=== PATIENT | female | born 1950 | race Caucasian/White ===

== ENCOUNTER 2016-08-15 17:34 | Inpatient (IN) | payer OTHER ==
[~2016-08-15] VITALS: Ht 152.4 cm; Wt 74.8 kg
[~2016-08-15 17:34] MED LIST: ACETAMINOPHEN650 M7 PO; AMLODIPINE BES2.5 MG PO; Aspirin E.C. PO; CHRONULAC,CEPHUL1 ML PO; CORAL CALCIUM1 EAC4 PO; ELIQUIS5 MG PO; FAMOTIDINE PO; FISH OIL500 MG PO; HYDROCHLOROTHIA25 MG PO; HYDROCHLOROTHIAZIDE; HYDROCODON-ACE1 EAC9 PO; KEFLEX500 MG PO; LISINOPRIL; LISINOPRIL 20 MG TAB; LISINOPRIL20 MG PO; LO-DOSE ASPIRIN81 M1 PO; LORAZEPAM; MOTRIN600 MG PO; NAPROXEN; NAPROXEN500 MG PO; NORCO 5/3251 TABLET PO; NORVASC5 MG PO; OMEPRAZOLE20 M2 PO; OMEPRAZOLE20 MG PO; OMEPRAZOLE40 M1 PO; PANTOPRAZOLE SO40 MG PO; PHENERGAN25 MG PO; PRINIVIL20 MG PO; PROMETHAZINE HC25 M1 PO; STOOL SOFTENER100 MG PO; TYLENOL EXTRA500 MG PO; TYLENOL WITH C1 EACH PO; VITAMIN D1000 INTUN PO
[2016-08-15] MEDS ORDERED: HYZAAR 100-11 TABLET PO (17:48)
[2016-08-15 18:08] LABS: MCH 27.7 PG (29.0-34.0); MCHC 31.8 G/DL (30.0-36.0); MCV 87.1 FL (83-99); MEAN PLAT.VOLUME 10.5 uM^3 (9.5-12.4); PLATELET COUNT 310 K/uL (156-360); RBC DIS.WIDTH-CV 14.4 % (11.8-14.6); RBC DIS.WIDTH-SD 45.9 % (39-53); RED BLOOD COUNT 4.59 M/uL (3.80-5.20); WHITE BLOOD COUNT 15.4 K/uL (4.1-10.2)
[2016-08-15 18:17] LABS: CHLORIDE 105 mEq/L (99-109); POTASSIUM 3.6 mEq/L (3.7-5.4); SODIUM 140 mEq/L (136-147)
[2016-08-15 18:20] LABS: GLUCOSE 124 mg/dL (70-99)
[2016-08-15 18:21] LABS: ANION GAP 12 MEQ/L (2-14)
[2016-08-15 18:22] LABS: TOTAL BILIRUBIN 0.8 mg/dL (0.0-1.0)
[2016-08-15 18:23] LABS: ALKALINE PHOSPHATASE 72 IU/L (3-129); GFR ESTIMATE (CALCULATED) > 59 mL/min/
[2016-08-15 18:24] LABS: UREA NITROGEN (BUN) 19 mg/dL (9-23)
[2016-08-15] MEDS ORDERED: TYLENOL EXTRA500 MG PO (21:52)
[2016-08-15] MEDS ORDERED: LO-DOSE ASPIRIN81 M1 PO (21:52)
[2016-08-16 02:30] LABS: ADD MIUA? YES; BILIRUBIN NEGATIVE; BLOOD MODERATE; COLOR YELLOW ((YELLOW)); GLUCOSE (STRIP) NEGATIVE; KETONES NEGATIVE; LEUKOCYTES SMALL; NITRITE NEGATIVE; PROTEIN (STRIP) NEGATIVE; SPECIFIC GRAVITY 1.041 (1.000-1.030); UROBILINOGEN 0.2 MG/DL (0.2-1.0)
[2016-08-16 02:32] LABS: BACTERIA RARE /HPF; EPITHELIAL CELLS RARE /HPF; MUCUS TRACE /LPF; RED BLOOD CELLS 0-5 /HPF (0-5); UCUL ADDED? NO; WHITE BLOOD CELLS 0-5 /HPF (0-5)
[2016-08-16 04:44] LABS: HEMATOCRIT 38.2 % (36.0-46.0); MCH 27.7 PG (29.0-34.0); MCHC 31.4 G/DL (30.0-36.0); MCV 88.2 FL (83-99); MEAN PLAT.VOLUME 10.9 uM^3 (9.5-12.4); PLATELET COUNT 268 K/uL (156-360); RBC DIS.WIDTH-CV 14.6 % (11.8-14.6); RBC DIS.WIDTH-SD 47.1 % (39-53); RED BLOOD COUNT 4.33 M/uL (3.80-5.20); WHITE BLOOD COUNT 16.1 K/uL (4.1-10.2)
[2016-08-16 05:02] LABS: CHLORIDE 104 mEq/L (99-109); SODIUM 138 mEq/L (136-147)
[2016-08-16 05:05] LABS: ANION GAP 9 MEQ/L (2-14); GLUCOSE 112 mg/dL (70-99)
[2016-08-16 05:06] LABS: TOTAL BILIRUBIN 0.9 mg/dL (0.0-1.0)
[2016-08-16 05:08] LABS: ALKALINE PHOSPHATASE 65 IU/L (3-129); GFR ESTIMATE (CALCULATED) > 59 mL/min/
[2016-08-16 05:09] LABS: UREA NITROGEN (BUN) 14 mg/dL (9-23)
[2016-08-16 15:00] LABS: HEMATOCRIT 35.7 % (36.0-46.0); MCH 27.6 PG (29.0-34.0); MCHC 30.8 G/DL (30.0-36.0); MCV 89.5 FL (83-99); MEAN PLAT.VOLUME 10.4 uM^3 (9.5-12.4); PLATELET COUNT 266 K/uL (156-360); RBC DIS.WIDTH-CV 14.6 % (11.8-14.6); RBC DIS.WIDTH-SD 48.1 % (39-53); RED BLOOD COUNT 3.99 M/uL (3.80-5.20); WHITE BLOOD COUNT 14.8 K/uL (4.1-10.2)
[2016-08-16 15:14] LABS: CHLORIDE 106 mEq/L (99-109); POTASSIUM 3.5 mEq/L (3.7-5.4); SODIUM 140 mEq/L (136-147)
[2016-08-16 15:15] LABS: GLUCOSE 86 mg/dL (70-99)
[2016-08-16 15:17] LABS: ANION GAP 7 MEQ/L (2-14)
[2016-08-16 15:19] LABS: GFR ESTIMATE (CALCULATED) > 59 mL/min/
[2016-08-16 15:20] LABS: UREA NITROGEN (BUN) 11 mg/dL (9-23)
[2016-08-16 18:15] VITALS: BP 101/65
[2016-08-16 23:43] VITALS: BP 140/66
[2016-08-17 03:48] VITALS: BP 124/69
[2016-08-17 07:09] LABS: EOSINOPHIL (%) 1.1 % (0-5); EOSINOPHIL COUNT 0.2 K/uL (0-0.3); HEMATOCRIT 33.7 % (36.0-46.0); IMMATURE GRANULOCYTE (%) 0.6 % (0.0-0.7); IMMATURE GRANULOCYTE COUNT 0.1 K/uL; INSTRUMENT ABS NEUTROPHIL CT 11.2 K/uL; LYMPHOCYTE COUNT 1.5 K/uL (1.0-2.8); MCH 27.5 PG (29.0-34.0); MCHC 30.6 G/DL (30.0-36.0); MCV 89.9 FL (83-99); MEAN PLAT.VOLUME 10.7 uM^3 (9.5-12.4); MONOCYTE (%) 9.4 % (3-12); MONOCYTE COUNT 1.4 K/uL (0-0.8); NEUTROPHIL (%) 77.8 % (45-76); NEUTROPHIL COUNT 11.2 K/uL (1.8-6.4); PLATELET COUNT 246 K/uL (156-360); RBC DIS.WIDTH-CV 14.8 % (11.8-14.6); RBC DIS.WIDTH-SD 49.1 % (39-53); RED BLOOD COUNT 3.75 M/uL (3.80-5.20); WHITE BLOOD COUNT 14.3 K/uL (4.1-10.2)
[2016-08-17 07:30] LABS: ANION GAP 5 MEQ/L (2-14); CHLORIDE 104 MEQ/L (99-109); GFR ESTIMATE (CALCULATED) > 59 mL/min/; POTASSIUM 3.5 MEQ/L (3.7-5.4); SAMPLE HEMOLYSIS CHECK 0; SAMPLE ICTERIC CHECK 0; SAMPLE LIPEMIA CHECK 0; SODIUM 139 MEQ/L (136-147); UREA NITROGEN (BUN) 7 mg/dL (9-23)
[2016-08-17 07:40] LABS: GLUCOSE 108 mg/dL (70-99)
[2016-08-17 07:56] VITALS: BP 111/62
[2016-08-17 15:24] VITALS: BP 130/68
[2016-08-17 19:14] VITALS: BP 141/71
[2016-08-17 22:56] LABS: INTERNAL CONTROL VALID? YES
[2016-08-17 23:20] LABS: C DIFF TOXIN NEGATIVE (NEGATIVE)
[2016-08-17 23:21] LABS: PROBE CHECK PASS; SPECIMEN PROCESSING CONTROL PASS
[2016-08-18] VITALS (7 sets, daily range): BP systolic 100–145; BP diastolic 60–89
[2016-08-18 10:40] LABS: BASOPHIL COUNT 0.1 K/uL (0-0.1); EOSINOPHIL (%) 1.4 % (0-5); EOSINOPHIL COUNT 0.1 K/uL (0-0.3); HEMATOCRIT 34.3 % (36.0-46.0); IMMATURE GRANULOCYTE (%) 0.4 % (0.0-0.7); LYMPHOCYTE COUNT 1.6 K/uL (1.0-2.8); MCH 27.4 PG (29.0-34.0); MCHC 30.6 G/DL (30.0-36.0); MCV 89.6 FL (83-99); MEAN PLAT.VOLUME 10.7 uM^3 (9.5-12.4); MONOCYTE (%) 13.1 % (3-12); MONOCYTE COUNT 1.2 K/uL (0-0.8); NEUTROPHIL (%) 66.5 % (45-76); PLATELET COUNT 249 K/uL (156-360); RBC DIS.WIDTH-CV 14.7 % (11.8-14.6); RBC DIS.WIDTH-SD 47.8 % (39-53); RED BLOOD COUNT 3.83 M/uL (3.80-5.20); WHITE BLOOD COUNT 9.1 K/uL (4.1-10.2)
[2016-08-18 10:46] LABS: ANION GAP 10 MEQ/L (2-14); CHLORIDE 105 MEQ/L (99-109); GFR ESTIMATE (CALCULATED) > 59 mL/min/; GLUCOSE 108 mg/dL (70-99); POTASSIUM 3.6 MEQ/L (3.7-5.4); SAMPLE HEMOLYSIS CHECK 0; SAMPLE ICTERIC CHECK 0; SAMPLE LIPEMIA CHECK 0; SODIUM 144 MEQ/L (136-147); UREA NITROGEN (BUN) 6 mg/dL (9-23)
[2016-08-19 03:58] VITALS: BP 168/82
[2016-08-19 07:05] VITALS: BP 138/84
[2016-08-19 07:12] LABS: BASOPHIL COUNT 0.1 K/uL (0-0.1); EOSINOPHIL (%) 3.2 % (0-5); EOSINOPHIL COUNT 0.2 K/uL (0-0.3); HEMATOCRIT 34.1 % (36.0-46.0); IMMATURE GRANULOCYTE (%) 0.5 % (0.0-0.7); INSTRUMENT ABS NEUTROPHIL CT 3.7 K/uL; LYMPHOCYTE COUNT 1.5 K/uL (1.0-2.8); MCH 27.4 PG (29.0-34.0); MCHC 31.1 G/DL (30.0-36.0); MCV 88.1 FL (83-99); MEAN PLAT.VOLUME 10.4 uM^3 (9.5-12.4); MONOCYTE (%) 15.9 % (3-12); NEUTROPHIL (%) 57.1 % (45-76); NEUTROPHIL COUNT 3.7 K/uL (1.8-6.4); PLATELET COUNT 275 K/uL (156-360); RBC DIS.WIDTH-CV 14.6 % (11.8-14.6); RBC DIS.WIDTH-SD 46.8 % (39-53); RED BLOOD COUNT 3.87 M/uL (3.80-5.20); WHITE BLOOD COUNT 6.5 K/uL (4.1-10.2)
[2016-08-19 07:40] LABS: ANION GAP 8 MEQ/L (2-14); CHLORIDE 107 MEQ/L (99-109); GFR ESTIMATE (CALCULATED) > 59 mL/min/; GLUCOSE 109 mg/dL (70-99); POTASSIUM 3.4 MEQ/L (3.7-5.4); SAMPLE HEMOLYSIS CHECK 0; SAMPLE ICTERIC CHECK 0; SAMPLE LIPEMIA CHECK 0; SODIUM 146 MEQ/L (136-147); UREA NITROGEN (BUN) 4 mg/dL (9-23)
[2016-08-19 16:18] VITALS: BP 140/56
[2016-08-19 23:46] VITALS: BP 147/81
[2016-08-20 07:45] VITALS: BP 119/85
[2016-08-20 07:48] LABS: ANION GAP 10 MEQ/L (2-14); CHLORIDE 109 MEQ/L (99-109); GFR ESTIMATE (CALCULATED) > 59 mL/min/; GLUCOSE 102 mg/dL (70-99); POTASSIUM 3.6 MEQ/L (3.7-5.4); SAMPLE HEMOLYSIS CHECK 0; SAMPLE ICTERIC CHECK 0; SAMPLE LIPEMIA CHECK 0; SODIUM 144 MEQ/L (136-147); UREA NITROGEN (BUN) 5 mg/dL (9-23)
[2016-08-20 07:55] LABS: HEMATOCRIT 33.6 % (36.0-46.0); MCH 27.6 PG (29.0-34.0); MCHC 31.5 G/DL (30.0-36.0); MCV 87.5 FL (83-99); MEAN PLAT.VOLUME 10.7 uM^3 (9.5-12.4); PLATELET COUNT 285 K/uL (156-360); RBC DIS.WIDTH-CV 14.9 % (11.8-14.6); RBC DIS.WIDTH-SD 47.6 % (39-53); RED BLOOD COUNT 3.84 M/uL (3.80-5.20)
[2016-08-20] MEDS ORDERED: METRONIDAZOLE500 MG PO (12:03)
[2016-08-20] MEDS ORDERED: HYDROCORTISONE30 G2 PR (12:03)
[2016-08-20] MEDS ORDERED: CIPROFLOXACIN500 M1 PO (12:03)
== END 2016-08-20 13:58 | disposition home or self-care (01) | DRG 394 ==
LOC: EME 17:34 → EDOF 08-16 00:43 → 2EAST 08-16 00:43
PROVIDERS: Emergency Medicine; Hospitalist; Internal Medicine; Internal Medicine Gastroenterology; Nurse Practitioner Family
DX: K55.9 Vascular disorder of intestine, unspecified (principal); K63.3 Ulcer of intestine; K57.32 Diverticulitis of large intestine without perforation or abscess without bleeding; K59.00 Constipation, unspecified; E86.0 Dehydration; I10 Essential (primary) hypertension; K21.9 Gastro-esophageal reflux disease without esophagitis; E87.6 Hypokalemia; K76.0 Fatty (change of) liver, not elsewhere classified; K64.8 Other hemorrhoids; K76.9 Liver disease, unspecified; Z86.711 Personal history of pulmonary embolism; Z86.718 Personal history of other venous thrombosis and embolism
CPT/HCPCS: 71275; 74177; 80048; 80048 91; 80053; 80069; 81003; 83630; 85025; 85027; 85379; 87493; 88305; 93005; 99281; 99285; J0744; J1644; J1885; J2270; J2405; J3480; J7030; S0030

== ENCOUNTER 2016-09-17 12:28 | Emergency (ER) | payer OTHER ==
[~2016-09-17] VITALS: Ht 147.3 cm; Wt 73.1 kg
[~2016-09-17 12:28] MED LIST changes: +CIPROFLOXACIN500 M1 PO; +HYDROCORTISONE30 G2 PR; +HYZAAR 100-11 TABLET PO; +METRONIDAZOLE500 MG PO
[2016-09-17] MEDS ORDERED: TOBREX3.5 GM RIGHT EYE (14:23)
[2016-09-17 14:33] VITALS: BP 148/88
== END 2016-09-17 14:34 | disposition home or self-care (01) ==
LOC: EXP 12:28 → EME 12:28 → EXP 14:34
DX: S05.01XA Injury of conjunctiva and corneal abrasion without foreign body, right eye, initial encounter (principal); I10 Essential (primary) hypertension; K21.9 Gastro-esophageal reflux disease without esophagitis
CPT/HCPCS: 99281; 99283

== ENCOUNTER 2017-07-03 15:00 | Inpatient (IN) | payer OTHER ==
[~2017-07-03] VITALS: Ht 149.9 cm; Wt 79.6 kg
[~2017-07-03 15:00] MED LIST changes: +TOBREX3.5 GM RIGHT EYE
[2017-07-03 16:47] LABS: HEMATOCRIT 39.2 % (36.0-46.0); HEMOGLOBIN 12.9 G/DL (11.9-15.5); MCH 27.8 PG (29.0-34.0); MCHC 32.9 G/DL (30.0-36.0); MCV 84.5 FL (83-99); PLATELET COUNT 241 K/uL (156-360); RBC DIS.WIDTH-CV 14.5 % (11.8-14.6); RBC DIS.WIDTH-SD 44.8 % (39-53); RED BLOOD COUNT 4.64 M/uL (3.80-5.20); WHITE BLOOD COUNT 7.6 K/uL (4.1-10.2)
[2017-07-03 16:55] LABS: CHLORIDE 108 mEq/L (99-109); POTASSIUM 3.1 mEq/L (3.7-5.4); SODIUM 142 mEq/L (136-147)
[2017-07-03 16:57] LABS: GLUCOSE 104 mg/dL (70-99)
[2017-07-03 16:58] LABS: TOTAL PROTEIN 6.9 g/dL (6.4-8.3)
[2017-07-03 16:59] LABS: TOTAL BILIRUBIN 0.7 mg/dL (0.0-1.0)
[2017-07-03 17:01] LABS: ALKALINE PHOSPHATASE 72 IU/L (3-129); CREATININE 0.8 mg/dL (0.6-1.3); GFR ESTIMATE (CALCULATED) > 59 mL/min/
[2017-07-03 17:02] LABS: UREA NITROGEN (BUN) 16 mg/dL (9-23)
[2017-07-03 17:03] LABS: AST (GOT) 31 IU/L (2-34)
[2017-07-03 17:04] LABS: ALT (GPT) 30 IU/L (3-49); LIPASE 45 U/L (1.0-51.0)
[2017-07-03 17:52] LABS: APPEARANCE SL.HAZY ((CLEAR)); BILIRUBIN NEGATIVE; BLOOD SMALL; COLOR YELLOW ((YELLOW)); GLUCOSE (STRIP) NEGATIVE; KETONES NEGATIVE; LEUKOCYTES NEGATIVE; NITRITE NEGATIVE; PROTEIN (STRIP) NEGATIVE; SPECIFIC GRAVITY 1.012 (1.000-1.030); UROBILINOGEN 0.2 MG/DL (0.2-1.0)
[2017-07-03 17:57] LABS: BACTERIA RARE /HPF; EPITHELIAL CELLS 1+ /HPF; MUCUS TRACE /LPF; RED BLOOD CELLS 0-5 /HPF (0-5); WHITE BLOOD CELLS 0-5 /HPF (0-5)
[2017-07-03 18:52] LABS: TROP-I INTERPRETATION NEGATIVE; TROPONIN-I < 0.01 ng/mL (0.0-0.30)
[2017-07-03] MEDS ORDERED: LOSARTAN-HCTZ1 EAC2 PO (19:27)
[2017-07-03] MEDS ORDERED: ALEVE220 MG PO (19:30)
[2017-07-04 01:33] LABS: TROP-I INTERPRETATION NEGATIVE; TROPONIN-I 0.02 ng/mL (0.0-0.30)
[2017-07-04 06:22] LABS: HEMATOCRIT 35.7 % (36.0-46.0); HEMOGLOBIN 11.4 G/DL (11.9-15.5); MCH 27.9 PG (29.0-34.0); MCHC 31.9 G/DL (30.0-36.0); MCV 87.3 FL (83-99); PLATELET COUNT 214 K/uL (156-360); RBC DIS.WIDTH-CV 15.3 % (11.8-14.6); RBC DIS.WIDTH-SD 48.6 % (39-53); RED BLOOD COUNT 4.09 M/uL (3.80-5.20); WHITE BLOOD COUNT 5.7 K/uL (4.1-10.2)
[2017-07-04 06:41] LABS: CHLORIDE 110 mEq/L (99-109); SODIUM 142 mEq/L (136-147)
[2017-07-04 06:42] LABS: POTASSIUM 3.9 mEq/L (3.7-5.4)
[2017-07-04 06:43] LABS: GLUCOSE 101 mg/dL (70-99)
[2017-07-04 06:47] LABS: CREATININE 0.7 mg/dL (0.6-1.3); GFR ESTIMATE (CALCULATED) > 59 mL/min/; UREA NITROGEN (BUN) 13 mg/dL (9-23)
[2017-07-04 11:23] LABS: TROP-I INTERPRETATION NEGATIVE; TROPONIN-I < 0.01 ng/mL (0.0-0.30)
[2017-07-04 12:30] VITALS: BP 131/74
[2017-07-04 12:37] LABS: THYROTROPIN (TSH) 1.2 MIU/L (0.4-5.5)
[2017-07-04 16:21] VITALS: BP 137/81
[2017-07-04 20:00] VITALS: BP 128/64
[2017-07-05 00:18] VITALS: BP 128/60
[2017-07-05 04:48] VITALS: BP 125/80
[2017-07-05 09:58] VITALS: BP 115/57
[2017-07-05 11:57] VITALS: BP 131/73
[2017-07-05 16:08] VITALS: BP 137/73
[2017-07-05 19:37] VITALS: BP 128/62
[2017-07-06] VITALS (7 sets, daily range): BP systolic 136–175; BP diastolic 71–91
[2017-07-06 08:50] LABS: HEMATOCRIT 36.7 % (36.0-46.0); HEMOGLOBIN 10.9 G/DL (11.9-15.5); MCH 26.6 PG (29.0-34.0); MCHC 29.7 G/DL (30.0-36.0); MCV 89.5 FL (83-99); PLATELET COUNT 272 K/uL (156-360); RBC DIS.WIDTH-CV 15.5 % (11.8-14.6); RBC DIS.WIDTH-SD 50.8 % (39-53); WHITE BLOOD COUNT 10.9 K/uL (4.1-10.2)
[2017-07-06 09:18] LABS: CHLORIDE 108 MEQ/L (99-109); CREATININE 0.6 MG/DL (0.6-1.3); GFR ESTIMATE (CALCULATED) > 59 mL/min/; GLUCOSE 135 mg/dL (70-99); POTASSIUM 4.1 MEQ/L (3.7-5.4); SODIUM 144 MEQ/L (136-147)
[2017-07-06 09:21] LABS: UREA NITROGEN (BUN) 24 mg/dL (9-23)
[2017-07-07 00:38] VITALS: BP 107/63
[2017-07-07 04:15] VITALS: BP 108/71
[2017-07-07] MEDS ORDERED: MUCINEX600 MG PO (11:35)
[2017-07-07] MEDS ORDERED: CEFDINIR300 MG PO (11:36)
[2017-07-07] MEDS ORDERED: PREDNISONE10 MG PO (11:39)
[2017-07-07 11:52] VITALS: BP 151/89
== END 2017-07-07 19:06 | disposition home health service (06) | DRG 192 ==
LOC: EME 15:00 → EDOF 21:51 → ENRESERV 21:52 → 5WEST 07-04 11:54
PROVIDERS: Hospitalist; Nurse Practitioner Adult Health; Nurse Practitioner Family
DX: J44.1 Chronic obstructive pulmonary disease with (acute) exacerbation (principal); I27.20 Pulmonary hypertension, unspecified; J44.0 Chronic obstructive pulmonary disease with (acute) lower respiratory infection; J20.9 Acute bronchitis, unspecified; E87.6 Hypokalemia; I10 Essential (primary) hypertension; K21.0 Gastro-esophageal reflux disease with esophagitis; Z79.82 Long term (current) use of aspirin; Z86.711 Personal history of pulmonary embolism; Z87.442 Personal history of urinary calculi
CPT/HCPCS: 71046; 71275; 80048; 80053; 81003; 83690; 84443; 84484; 85027; 87040; 87502; 93005; 93306; 94640; 94640 76; 94799; 99202; 99281; 99285; G0378; J0696; J1200; J1644; J1885; J2405; J2765; J2920; J2930; J7030; J7512

== ENCOUNTER 2017-07-12 15:13 | Inpatient (IN) | payer OTHER ==
[~2017-07-12] VITALS: Ht 147.3 cm; Wt 78.6 kg
[~2017-07-12 15:13] MED LIST changes: +ALEVE220 MG PO; +CEFDINIR300 MG PO; +LOSARTAN-HCTZ1 EAC2 PO; +MUCINEX600 MG PO; +PREDNISONE10 MG PO
[2017-07-12 16:07] LABS: HEMATOCRIT 43.3 % (36.0-46.0); MCH 27.7 PG (29.0-34.0); MCHC 32.1 G/DL (30.0-36.0); MCV 86.3 FL (83-99); NRBC (%) 0.1 /100 WBC (0-0); PLATELET COUNT 210 K/uL (156-360); RBC DIS.WIDTH-CV 14.9 % (11.8-14.6); RBC DIS.WIDTH-SD 46.9 % (39-53); WHITE BLOOD COUNT 13.4 K/uL (4.1-10.2)
[2017-07-12 16:08] LABS: HEMOGLOBIN 13.9 G/DL (11.9-15.5); RED BLOOD COUNT 5.02 M/uL (3.80-5.20)
[2017-07-12 16:33] LABS: TROP-I INTERPRETATION NEGATIVE; TROPONIN-I 0.02 ng/mL (0.0-0.30)
[2017-07-12 16:45] LABS: CK-MB 2.8 ng/mL (0.0-4.9)
[2017-07-12 17:31] LABS: ALBUMIN 3.4 G/DL (3.2-4.8); ALKALINE PHOSPHATASE 53 IU/L (3-129); ALT (GPT) 37 IU/L (3-49); AST (GOT) 20 IU/L (2-34); CHLORIDE 105 MEQ/L (99-109); CKMB RELATIVE INDEX 3.8 (0.0-3.9); CREATINE KINASE 73 IU/L (1-294); GFR ESTIMATE (CALCULATED) 44 mL/min/; GLUCOSE 116 mg/dL (70-99); POTASSIUM 3.7 MEQ/L (3.7-5.4); SODIUM 144 MEQ/L (136-147); TOTAL BILIRUBIN 0.8 MG/DL (0.0-1.0); TOTAL CK 73 IU/L (1-294); TOTAL PROTEIN 5.7 G/DL (6.4-8.3); UREA NITROGEN (BUN) 25 mg/dL (9-23)
[2017-07-12 17:32] LABS: CREATININE 1.3 MG/DL (0.6-1.3)
[2017-07-12 17:41] LABS: APPEARANCE CLEAR ((CLEAR)); BILIRUBIN NEGATIVE; BLOOD SMALL; COLOR YELLOW ((YELLOW)); GLUCOSE (STRIP) NEGATIVE; KETONES NEGATIVE; LEUKOCYTES NEGATIVE; NITRITE NEGATIVE; PROTEIN (STRIP) NEGATIVE; SPECIFIC GRAVITY 1.006 (1.000-1.030); UROBILINOGEN 0.2 MG/DL (0.2-1.0)
[2017-07-12 17:59] LABS: BACTERIA RARE /HPF; EPITHELIAL CELLS RARE /HPF; MUCUS 1+ /LPF; RED BLOOD CELLS 0-5 /HPF (0-5); UCUL ADDED? YES
[2017-07-12] MEDS ORDERED: PREDNISONE10 MG PO (19:17)
[2017-07-12 22:00] VITALS: BP 87/56
[2017-07-13 03:45] VITALS: BP 113/72
[2017-07-13 05:39] LABS: HEMATOCRIT 41.9 % (36.0-46.0); MCH 26.9 PG (29.0-34.0); MCV 86.7 FL (83-99); RBC DIS.WIDTH-CV 15.4 % (11.8-14.6); RED BLOOD COUNT 4.83 M/uL (3.80-5.20)
[2017-07-13 05:40] LABS: PLATELET COUNT 301 K/uL (156-360)
[2017-07-13 06:12] LABS: CHLORIDE 111 MEQ/L (99-109); CREATININE 0.9 MG/DL (0.6-1.3); GFR ESTIMATE (CALCULATED) > 59 mL/min/; GLUCOSE 132 mg/dL (70-99); POTASSIUM 3.9 MEQ/L (3.7-5.4); SODIUM 145 MEQ/L (136-147); UREA NITROGEN (BUN) 21 mg/dL (9-23)
[2017-07-13 08:23] VITALS: BP 107/69
[2017-07-13 11:01] VITALS: BP 110/55
[2017-07-13 14:54] VITALS: BP 128/77
[2017-07-13 20:45] VITALS: BP 124/65
[2017-07-13 23:35] LABS: C DIFF TOXIN NEGATIVE (NEGATIVE)
[2017-07-14 03:10] VITALS: BP 120/71
[2017-07-14 07:05] VITALS: BP 139/81
[2017-07-14 11:42] VITALS: BP 116/67
[2017-07-14 14:54] VITALS: BP 136/80
[2017-07-14 20:26] VITALS: BP 139/82
[2017-07-14 23:00] VITALS: BP 128/69
[2017-07-15 04:00] VITALS: BP 140/76
[2017-07-15 06:50] VITALS: BP 130/90
[2017-07-15 09:04] LABS: HEMATOCRIT 39.4 % (36.0-46.0); HEMOGLOBIN 12.1 G/DL (11.9-15.5); MCHC 30.7 G/DL (30.0-36.0); MCV 87.9 FL (83-99); PLATELET COUNT 306 K/uL (156-360); RBC DIS.WIDTH-CV 16.1 % (11.8-14.6); RBC DIS.WIDTH-SD 51.5 % (39-53); RED BLOOD COUNT 4.48 M/uL (3.80-5.20); WHITE BLOOD COUNT 18.5 K/uL (4.1-10.2)
[2017-07-15 09:52] LABS: CHLORIDE 110 MEQ/L (99-109); CREATININE 0.6 MG/DL (0.6-1.3); GFR ESTIMATE (CALCULATED) > 59 mL/min/; GLUCOSE 167 mg/dL (70-99); POTASSIUM 3.7 MEQ/L (3.7-5.4); SODIUM 146 MEQ/L (136-147); UREA NITROGEN (BUN) 20 mg/dL (9-23)
[2017-07-15 11:07] VITALS: BP 130/86
[2017-07-15 15:16] VITALS: BP 128/84
[2017-07-16 00:13] VITALS: BP 136/63
[2017-07-16 07:07] LABS: BASOPHIL (%) 0.2 % (0-1); EOSINOPHIL (%) 0.3 % (0-5); HEMATOCRIT 38.8 % (36.0-46.0); HEMOGLOBIN 12.3 G/DL (11.9-15.5); IMMATURE GRANULOCYTE (%) 2.1 % (0.0-0.7); LYMPHOCYTE COUNT 2.5 K/uL (1.0-2.8); MCH 27.8 PG (29.0-34.0); MCHC 31.7 G/DL (30.0-36.0); MCV 87.8 FL (83-99); MONOCYTE (%) 14.2 % (3-12); NEUTROPHIL (%) 65.2 % (45-76); PLATELET COUNT 231 K/uL (156-360); RBC DIS.WIDTH-CV 16.4 % (11.8-14.6); RBC DIS.WIDTH-SD 52.7 % (39-53); RED BLOOD COUNT 4.42 M/uL (3.80-5.20); WHITE BLOOD COUNT 13.8 K/uL (4.1-10.2)
[2017-07-16 07:15] VITALS: BP 146/84
[2017-07-16] MEDS ORDERED: OSELTAMIVIR PHO30 MG PO (07:19)
[2017-07-16] MEDS ORDERED: LOSARTAN-HCTZ1 EAC2 PO (07:20)
[2017-07-16] MEDS ORDERED: PANTOPRAZOLE SO40 MG PO (07:27)
[2017-07-16] MEDS ORDERED: PREDNISONE20 MG PO (07:27)
[2017-07-16] MEDS ORDERED: ADVAIR HFA120 INHALA IH (07:27)
[2017-07-16] MEDS ORDERED: SPIRIVA RESPIMAT4 GM IH (07:27)
== END 2017-07-16 08:56 | disposition home or self-care (01) | DRG 872 ==
LOC: EME 15:13 → EDOF 19:43 → 4EAST 19:43 → ENRESERV 19:51 → 4EAST 21:54 → ENRESERV 07-14 12:34 → 5EAST 07-14 14:16 → ENPENDDIS 07-16 → 5EAST 07-16 08:56
PROVIDERS: Emergency Medicine; Family Medicine; Hospitalist
DX: A41.89 Other specified sepsis (principal); J44.1 Chronic obstructive pulmonary disease with (acute) exacerbation; J10.1 Influenza due to other identified influenza virus with other respiratory manifestations; J44.0 Chronic obstructive pulmonary disease with (acute) lower respiratory infection; J20.9 Acute bronchitis, unspecified; K21.9 Gastro-esophageal reflux disease without esophagitis; I10 Essential (primary) hypertension; E86.0 Dehydration; I95.9 Hypotension, unspecified; M19.049 Primary osteoarthritis, unspecified hand; Z86.711 Personal history of pulmonary embolism
CPT/HCPCS: 71045; 71275; 74176; 80048; 80053; 81003; 82550; 82553; 83605; 84484; 85025; 85027; 87040; 87077; 87086; 87493; 87502; 87801; 93005; 94640; 94640 76; 94799; 99202; 99281; 99285; J1650; J2405; J2543; J2930; J3370; J7030; J7050; J7512

== ENCOUNTER → 2017-08-07 | Outpatient (CLI) | payer OTHER ==
[~2017-08-07] MED LIST changes: +ADVAIR HFA120 INHALA IH; +OSELTAMIVIR PHO30 MG PO; +PREDNISONE20 MG PO; +SPIRIVA RESPIMAT4 GM IH
== END | disposition home or self-care (01) ==
LOC: RES 12:46
DX: R06.02 Shortness of breath (principal)
CPT/HCPCS: 94070; 94726; 94729

== ENCOUNTER 2017-12-18 16:26 | Emergency (ER) | payer OTHER ==
[~2017-12-18] VITALS: Ht 147.3 cm; Wt 74.8 kg
[2017-12-18 17:32] LABS: HEMATOCRIT 37.1 % (36.0-46.0); HEMOGLOBIN 12.2 G/DL (11.9-15.5); MCH 28.7 PG (29.0-34.0); MCHC 32.9 G/DL (30.0-36.0); MCV 87.3 FL (83-99); PLATELET COUNT 343 K/uL (156-360); RBC DIS.WIDTH-CV 14.2 % (11.8-14.6); RBC DIS.WIDTH-SD 45.1 % (39-53); RED BLOOD COUNT 4.25 M/uL (3.80-5.20); WHITE BLOOD COUNT 18.9 K/uL (4.1-10.2)
[2017-12-18 17:40] LABS: ALBUMIN 4.1 g/dL (3.2-4.8); CHLORIDE 107 mEq/L (99-109); POTASSIUM 3.6 mEq/L (3.7-5.4); SODIUM 143 mEq/L (136-147)
[2017-12-18 17:42] LABS: GLUCOSE 155 mg/dL (70-99); TOTAL PROTEIN 7.2 g/dL (6.4-8.3)
[2017-12-18 17:44] LABS: TOTAL BILIRUBIN 0.4 mg/dL (0.0-1.0)
[2017-12-18 17:46] LABS: ALKALINE PHOSPHATASE 74 IU/L (3-129); GFR ESTIMATE (CALCULATED) 59 mL/min/
[2017-12-18 17:47] LABS: UREA NITROGEN (BUN) 18 mg/dL (9-23)
[2017-12-18 17:48] LABS: AST (GOT) 35 IU/L (2-34)
[2017-12-18 17:49] LABS: ALT (GPT) 48 IU/L (3-49)
[2017-12-18 17:53] LABS: TROP-I INTERPRETATION NEGATIVE; TROPONIN-I < 0.01 ng/mL (0.0-0.30)
[2017-12-18 18:16] LABS: LIPASE 69 U/L (1.0-51.0)
[2017-12-18 20:59] LABS: APPEARANCE SL.HAZY ((CLEAR)); BILIRUBIN NEGATIVE; BLOOD NEGATIVE; COLOR YELLOW ((YELLOW)); GLUCOSE (STRIP) NEGATIVE; KETONES NEGATIVE; LEUKOCYTES NEGATIVE; NITRITE NEGATIVE; PROTEIN (STRIP) NEGATIVE; SPECIFIC GRAVITY 1.021 (1.000-1.030); UROBILINOGEN 0.2 MG/DL (0.2-1.0)
[2017-12-18 21:24] LABS: BACTERIA RARE /HPF; EPITHELIAL CELLS 3+ /HPF; HYALINE CASTS 0-5 /LPF; MUCUS TRACE /LPF; UCUL ADDED? NO; WHITE BLOOD CELLS 0-5 /HPF (0-5)
[2017-12-18] MEDS ORDERED: CIPRO500 MG PO (21:54)
[2017-12-18] MEDS ORDERED: ZOFRAN4 MG PO (21:54)
[2017-12-18 22:11] VITALS: BP 132/79
== END 2017-12-18 22:13 | disposition home or self-care (01) ==
LOC: EME 16:26
PROVIDERS: Physician Assistant
DX: R11.2 Nausea with vomiting, unspecified (principal); R19.7 Diarrhea, unspecified; R10.9 Unspecified abdominal pain; K92.1 Melena; I10 Essential (primary) hypertension; K21.9 Gastro-esophageal reflux disease without esophagitis; F41.9 Anxiety disorder, unspecified; Z87.442 Personal history of urinary calculi; Z79.82 Long term (current) use of aspirin; Z88.8 Allergy status to other drugs, medicaments and biological substances
CPT/HCPCS: 74176; 76705; 80053; 81003; 83690; 84484; 85027; 87506; 93005; 99281; 99285; J2270; J2765